=== PATIENT | male | born 1940 | race Caucasian/White ===

== ENCOUNTER 2022-10-14 05:11 | Inpatient (IN) | payer MEDICARE, SELFPAY ==
[2022-10-14] VITALS (20 sets, daily range): BP systolic 115–150; BP diastolic 61–91; PULSE 68–108; RESP 16–28; TEMP 36.8–37; O2SAT 89–100; BMI 22.1
--- NOTE | 2022-10-14 05:31 | ECG_ITS ---
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 Measurements Intervals [place] Rate: 73 P: 68 NV: 156 QRS: -80 QRSD: 146 T: 50 QT: 422 QTc: 467 Interpretive Statements SINUS RHYTHM WITH OCCASIONAL SUPRAVENTRICULAR PREMATURE COMPLEXES RIGHT BUNDLE BRANCH BLOCK [120+ ms QRS DURATION, UPRIGHT V1, 40+ ms S IN I/aVL/V4/V5/V6] LEFT ANTERIOR FASCICULAR BLOCK [QRS AXIS <= -45, QR IN I, RS IN II] POSSIBLE SEPTAL MYOCARDIAL INFARCTION , OF INDETERMINATE AGE [30 ms Q WAVE IN V1/V2] No previous ECG available for comparison Electronically Signed On 10-17-2022 18:27:23 [employer] by Mekhi Sandoval M.D. [id number]
--- NOTE | 2022-10-14 05:31 | XRR_ITS ---
PROCEDURE INFORMATION: Exam: XR Chest Exam date and time: 10/14/2022 6:37 AM Age: 82 years old Clinical indication: Shortness of breath; Chest pressure; Patient HX: C/O chest pain with SOB TECHNIQUE: Imaging protocol: Radiologic exam of the chest. Views: 1 view. COMPARISON: No relevant prior studies available. FINDINGS: Lungs: Normal lung volumes. No interstitial or airspace opacities. Pleural spaces: No pleural effusion. No pneumothorax. Heart/Mediastinum: Normal heart size. There is a mildly tortuous thoracic aorta. Midline trachea. Bones/joints: No acute abnormalities. Soft tissues: Multiple external densities are seen overlying the chest, limiting assessment. XR/XR chest 1V portable [id number] IMPRESSION: No chest radiographic evidence of acute cardiopulmonary disease.
--- NOTE | 2022-10-14 05:49 | ED_ITS ---
HPI - Chest Pain General: Chief Complaint: Chest Pain Stated Complaint: CHEST PAIN Time Seen by Provider: 10/14/22 05:30 Source: patient Mode of arrival: EMS History of Present Illness: 82-year-old male presents to the emergency room with complaint of chest pain. He has had the chest pain for about the last 4 to 5 days. Pain in the center is a left-sided chest radiating into the left arm nothing seem to have alleviated or exacerbated it. He has had a productive cough during that time he said he is felt hot at times but he has not documented a fever. Patient does not smoke he has no known history of coronary artery disease. MD complaint: chest pain Onset (ago): day(s) (5) Prior episodes: Yes Onset: during rest Pain location: left chest Pain radiation: left arm Severity: mild Relieving factors: nothing Exacerbating factors: nothing Associated symptoms: Deny abdominal pain, diaphoresis, dyspnea, fever(s), leg edema, nausea, palpitations, sense of impending doom, syncope or vomiting Treatment prior to arrival: none Review of Systems Const: Denies: fever(s), chills, fatigue, malaise or diaphoresis ENMT: Denies: throat pain, ear or mastoid pain, nasal discharge or nasal congestion Card: Denies: palpitations or syncope Resp: Denies: dyspnea GI: Denies: abdominal pain, nausea or vomiting : Denies: flank pain, dysuria, urinary frequency or urinary urgency Skin/Breast: Denies: rash or pruritus PFSH ED PFSH: Medical History HTN (hypertension) Surgical History No pertinent past surgical history Family History Denies family history of CAD (coronary artery disease) Social History Smoking and tobacco status: never smoked Alcohol intake: never Physical Exam Const: GENERAL APPEARANCE: cooperative and comfortable ORIENTATION/CONSCIOUSNESS: Yes awake, Yes oriented to person, Yes oriented to place and Yes oriented to time HENMT: COMMON NORMALS: normocephalic, atraumatic, hearing grossly normal bilaterally, external ears normal, EAC's normal, TM's normal bilaterally, Normal nasal mucous membranes and turbinates present, moist oral mucous membranes and oropharynx normal HEAD & SCALP: normocephalic and atraumatic NOSE: Normal nasal mucous membranes and turbinates present EXTERNAL EAR: Yes external ears normal EXTERNAL AUDITORY CANAL: EAC's normal TYMPANIC MEMBRANE: TM's normal bilaterally Eye: COMMON NORMALS: Equal, round and reactive pupils present, EOMs intact bilaterally, conjunctivae normal and no scleral icterus CONJUNCTIVA: Yes conjunctivae normal PUPIL: Yes Equal, round and reactive pupils present Neck/C-Spine: COMMON NORMALS: full ROM, no lymphadenopathy, supple and no JVD Lymph: LYMPHATIC: no lymphadenopathy noted and no lymphedema noted Resp: COMMON NORMALS: normal respiratory effort, No retractions, No use of accessory muscles and clear to auscultation bilaterally AUSCULTATION: clear to auscultation bilaterally Cardio: COMMON NORMALS: no JVD, regular rate, regular rhythm and No murmurs present (Cardio) RATE: regular rate RHYTHM: regular rhythm GI: COMMON NORMALS: Soft to palpation and No hepatosplenomegaly present AUSCULTATION: Yes normoactive bowel sounds PALPATION: Yes Soft to palpation, No Tenderness to palpation present (GI), No Guarding due to palpation present (GI) and Yes No hepatosplenomegaly present Extremity: COMMON NORMALS: normal to inspection, capillary refill normal, no clubbing, cyanosis or edema, no calf tenderness and no pedal edema Neuro: SENSORIUM/ORIENTATION: Yes oriented to person, Yes oriented to place and Yes oriented to time Skin: COMMON NORMALS: no rashes or lesions noted GENERAL SKIN EXAM: no rashes or lesions noted Course Vital Signs: Vital signs: Vital Signs Temperature 98.6 F 10/14/22 05:20 Pulse Rate 80 10/14/22 15:37 Respiratory Rate 18 10/14/22 15:37 Blood Pressure 133/87 10/14/22 09:04 Pulse Oximetry 93 10/14/22 15:37 Oxygen Delivery Me thod 10/14/22 15:37 Oxygen Flow Rate 2 10/14/22 09:04 MDM - Chest Pain Medical Decision Making EKG and labs reviewed. EKG shows a right bundle branch block and left anterior fascicular block with no acute ST changes noted he did have a positive delta troponin we will place him on observation. He was started on heparin given half inch of Nitropaste topically also loaded with Plavix discussed , orders written Medical Records I reviewed the patient's medical records. Lab Data I reviewed the patient's lab results. 10/14/22 04:43 10/14/22 04:43 Radiology Impressions Chest X-Ray 10/14/22 05:31 IMPRESSION: No chest radiographic evidence of acute cardiopulmonary disease. Laboratory Results WBC 8.2 10^3/uL (4.0-10.0) 10/14/22 04:43 RBC 4.90 10^6/uL (4.1-5.3) 10/14/22 04:43 Hgb 15.3 g/dL (11.7-16.6) 10/14/22 04:43 Hct 45.9 % (42.0-52.0) 10/14/22 04:43 MCV 93.7 fl (80-94) 10/14/22 04:43 MCH 31.2 pg (28.0-34.0) 10/14/22 04:43 MCHC 33.3 g/dL (30.0-36.0) 10/14/22 04:43 RDW 11.9 % (12.1-15.1) L 10/14/22 04:43 Plt Count 151 10^3/cmm (130-400) 10/14/22 04:43 MPV 10.7 fL (7.4-10.4) H 10/14/22 04:43 Neut % (Auto) 69.0 % 10/14/22 04:43 Lymph % (Auto) 20.8 % 10/14/22 04:43 [place] % (Auto) 8.5 % 10/14/22 04:43 Eos % (Auto) 0.6 % 10/14/22 04:43 Baso % (Auto) 0.6 % 10/14/22 04:43 Neut # (Auto) 5.69 10^3/uL (1.8-7.7) 10/14/22 04:43 Lymph # (Auto) 1.7 10^3/uL (0.8-4.8) 10/14/22 04:43 [place] # (Auto) 0.7 10^3/uL (0.2-0.9) 10/14/22 04:43 Eos # (Auto) 0.1 10^3/uL (0.0-0.8) 10/14/22 04:43 Baso # (Auto) 0.1 10^3/uL (0.0-0.1) 10/14/22 04:43 Nucleated RBC % (auto) 0 % 10/14/22 04:43 Nucleated RBCs # 0.0 /100WBC 10/14/22 04:43 Sodium 137 mmol/L (136-145) 10/14/22 04:43 Potassium 4.0 mmol/L (3.5-5.1) 10/14/22 04:43 Chloride 99 mmol/L (98-107) 10/14/22 04:43 Carbon Dioxide 24 mmol/L (22-29) 10/14/22 04:43 Anion Gap 18.0 (5-19) 10/14/22 04:43 BUN 16 mg/dL (8-23) 10/14/22 04:43 Creatinine 0.7 mg/dL (0.7-1.2) 10/14/22 04:43 GFR Calculation Not Reportable 10/14/22 04:43 Glucose 238 mg/dL (65-115) H 10/14/22 04:43 Calculated Osmolality 293 mOsm/kg (285-295) 10/14/22 04:43 Calcium 9.8 mg/dL (8.5-10.5) 10/14/22 04:43 Troponin T Baseline 16 ng/L (0-15) H 10/14/22 04:43 Troponin T 120 Minute 29.42 ng/L (0-15) H 10/14/22 07:35 Delta Troponin T 13.42 ABS# (0-10) H* 10/14/22 07:35 Discharge Plan Discharge Patient Disposition: Admitted As Inpatient Admit Provider: Meliton Miranda Clinical Impression: Non-ST elevation PR (NSTEMI) Condition: Stable Coding Level of Care Code ED Box Feeder for Astong Fwd Exam Comprehensive
[2022-10-14] MEDS: ipratropium-albuterol 3 mL Neb INHALATION (06:01)
[2022-10-14 06:04] LABS: Troponin(5th) Baseline 16 ng/L (0-15)
[2022-10-14 06:54] LABS: Basophils # 0.1 10^3/uL (0.0-0.1); Basophils % 0.6 %; Eosinophils # 0.1 10^3/uL (0.0-0.8); Eosinophils % 0.6 %; Hematocrit 45.9 % (42.0-52.0); Hemoglobin 15.3 g/dL (11.7-16.6); Lymphocytes # 1.7 10^3/uL (0.8-4.8); Lymphocytes % 20.8 %; Mean Corpuscular HGB Conc 33.3 g/dL (30.0-36.0); Mean Corpuscular Hemoglobin 31.2 pg (28.0-34.0); Mean Corpuscular Volume 93.7 fl (80-94); Mean Platelet Volume 10.7 fL (7.4-10.4); Monocytes # 0.7 10^3/uL (0.2-0.9); Monocytes % 8.5 %; Neutrophils # 5.69 10^3/uL (1.8-7.7); Nucleated Red Blood Cells % 0 %; Platelet Count 151 10^3/cmm (130-400); Red Cell Distribution Width 11.9 % (12.1-15.1); White Blood Count 8.2 10^3/uL (4.0-10.0)
[2022-10-14 06:57] LABS: Blood Urea Nitrogen 16 mg/dL (8-23); Calcium 9.8 mg/dL (8.5-10.5); Carbon Dioxide 24 mmol/L (22-29); Chloride 99 mmol/L (98-107); Glucose 238 mg/dL (65-115); Osmolality Calculated 293 mOsm/kg (285-295); Sodium 137 mmol/L (136-145)
--- NOTE | 2022-10-14 07:31 | ECG_ITS ---
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 Measurements Intervals [place] Rate: 73 P: 60 DE: 153 QRS: -78 QRSD: 145 T: 33 QT: 421 QTc: 464 Interpretive Statements SINUS RHYTHM WITH OCCASIONAL SUPRAVENTRICULAR PREMATURE COMPLEXES RIGHT BUNDLE BRANCH BLOCK [120+ ms QRS DURATION, UPRIGHT V1, 40+ ms S IN I/aVL/V4/V5/V6] LEFT ANTERIOR FASCICULAR BLOCK [QRS AXIS <= -45, QR IN I, RS IN II] POSSIBLE SEPTAL MYOCARDIAL INFARCTION , PROBABLY OLD [30 ms Q WAVE IN V1/V2] No previous ECG available for comparison Electronically Signed On 10-17-2022 18:35:44 STONEWORKING BELT SANDER by Mekhi Sandoval M.D. [id number]
--- NOTE | 2022-10-14 07:33 | PC.PHAR ---
pt states he takes care of his own medications-pt states still taking diltiazem 30mg daily and had build up-ext med history shows last filled 01/15/22 90d/s -pt states on mon and and was doubling up on on this medication-notes are made in the pharmacy comments
[2022-10-14 08:06] LABS: Troponin 5 2HR 29.42 ng/L (0-15)
[2022-10-14 08:09] LABS: Troponin 5 2HR Delta 13.42 ABS# (0-10)
[2022-10-14] MEDS: clopidogrel 300 mg Tablet 600 MG PO (08:37)
[2022-10-14] MEDS: nitroglycerin 1 gm/inch oint Pkt 0.5 INCH TOPICAL (08:38)
--- NOTE | 2022-10-14 11:30 | ECG_ITS ---
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 Measurements Intervals [place] Rate: 74 P: 0 MA: 0 QRS: -74 QRSD: 140 T: 51 QT: 425 QTc: 474 Interpretive Statements ATRIAL FIBRILLATION WITH ABERRANT CONDUCTION OR VENTRICULAR PREMATURE COMPLEXES RIGHT BUNDLE BRANCH BLOCK [120+ ms QRS DURATION, UPRIGHT V1, 40+ ms S IN I/aVL/V4/V5/V6] LEFT ANTERIOR FASCICULAR BLOCK [QRS AXIS <= -45, QR IN I, RS IN II] Compared to ECG 10/14/2022 07:47:26 Ventricular premature complex(es) now present Aberrant conduction of supraventricular beat(s) now present Sinus rhythm no longer present Myocardial infarct finding no longer present Electronically Signed On 10-17-2022 18:35:13 FIELD SERVICES MANAGER by Mekhi Sandoval M.D. [id number]
[2022-10-14] MEDS: heparin 5,000 unit/mL INJ 1 mL IV (11:33)
[2022-10-14] MEDS: heparin drip 25,000 UNIT/500 ML PREMIX 19 UNIT IV (11:40)
--- NOTE | 2022-10-14 12:15 | P.HP_ITS ---
Providers/Chief Complaint Admitting Physician: Meliton Miranda MD Primary Care Provider: Olaf Berkowitz Chief Complaint: CHEST PAIN History of Present Illness Alberto Herrera is a 82 year old male without significant past medical history other than hypertension came in with chief complaint of chest pain. Patient is stating that her symptoms were Monday with right-sided chest pain which has been radiating towards his left side he has also noted some pain in his left arm associated with some nausea and he experienced 1 episode of vomiting this morning that prompted his visit to the ER. In the ER he was diagnosed with NSTEMI with delta troponin 13 however no active chest pain. EKG without ischemic or infarctive changes. I requested D-dimer he has been started on therapeutic Lovenox. Patient wanted to leave to take care of his animals decided to stay 1 more day to get the echo done. Review of Systems Const: Denies: fever(s) Eyes: Denies: change in vision ENMT: Denies: throat pain Card: Reports: chest pain Resp: Denies: dyspnea GI: Denies: abdominal pain : Denies: flank pain Musc: Denies: neck pain Skin/Breast: Denies: rash Neuro: Denies: headache(s) Psych: Denies: anxiety Endo: Denies: polyuria Omar/Lymph: Denies: easy bruising All/Imm: Denies: urticaria Medications/Allergies Home Medications Medication Instructions Recorded Confirmed Last Taken Type aspirin 81 mg tablet,delayed 162 mg PO EVERY OTHER DAY 10/14/22 10/14/22 Unknown History release captopril 25 mg tablet 25 mg PO QA 10/14/22 10/14/22 10/14/22 01:00 History diltiazem HCl 30 mg tablet 30 mg PO QAM 10/14/22 10/14/22 10/14/22 01:00 History multivitamin 1 tab PO DAILY 10/14/22 10/14/22 Unknown History Allergies Allergy/AdvReac Type Severity Reaction Status Date / Time atenolol Allergy ALGY-Rash Verified 10/14/22 05:58 PFSH Acute PFSH: Medical History (Updated 10/14/22 @ 12:16 by Meliton Miranda MD) HTN (hypertension) Surgical History (Updated 10/14/22 @ 12:24 by Meliton Miranda MD) No pertinent past surgical history Family History (Updated 10/14/22 @ 12:25 by Meliton Miranda MD) Denies family history of CAD (coronary artery disease) Social History Smoking and tobacco status: never smoked Alcohol intake: never Vitals/I&O/Wt Last Vital Signs Temp 98.6 F 10/14/22 05:20 Pulse 70 10/14/22 09:04 Resp 16 10/14/22 09:04 BP 133/87 10/14/22 09:04 Pulse Ox 95 10/14/22 09:04 O2 Del Method 10/14/22 09:04 O2 Flow Rate 2 10/14/22 09:04 Weight last 48 hrs Weight 68.039 kg Physical Exam Narrative: S1, S2 A. fib without RVR Variable S1-S2 Abdomen soft No signs of edema Pleasant and cooperative Currently doing well on 2 L nasal cannula Nonfocal neuro exam Pleasant and cooperative No sign of cellulitis Data 10/14/22 04:43 10/14/22 04:43 A&P Assessment and plan (1) HTN (hypertension): (2) Atypical chest pain: (3) Non-ST elevation MT (NSTEMI): Plan Atypical chest pain NSTEMI Start ACS protocol Obtain echo to see wall motion abnormality New onset A. fib Check D-dimer We will start him on AV eliezer blocking agent and therapeutic Lovenox Full code Cardiac diet Check A1c Attestations Medical Necessity Statement*: more than 2 midnights anticipated Time Spent in Patient Care: 30 Coding Level of Care Code Acute Frame Welder Cargo Utility Trailers for Chg Fwd Diagnoses HTN (hypertension) I10 Atypical chest pain R07.89 Non-ST elevation MT (NSTEMI) I21.4
--- NOTE | 2022-10-14 12:30 | USCV_ITS ---
Alberto Herrera Age: 82 Gender: M : 1940 Exam Date: 10/14/2022 15:08 Ordering Phys: Meliton Miranda MD Technologist: DAVIDA [place] [facility] [place]: NSTEMI BP: 122 / 73 HR: 68 Rhythm: Sinus Technical Quality: Adequate MEASUREMENTS (Male / Female) Normal Values 2D ECHO LVOT Diameter 2.0 cm LV Ejection Fraction MOD 2C 51.8 % LV Ejection Fraction 2C AL 51.0 % LA Diameter 2.9 cm LA Width 2.8 cm LA Height 3.5 cm RA Width 2.9 cm RA Height 4.0 cm Aorta at Sinotubular Diameter 2.5 cm IVC Diameter 1.5 cm M-MODE Aortic Annulus Diameter 2.9 cm LA Ao Ratio MM 1.0 MV E Point Septal Separation 0.8 cm DOPPLER AV Peak Velocity 119.0 cm/s LVOT Peak Velocity 120.0 cm/s AV Area Cont Eq vti 2.8 cm squared AV Area Cont Eq pk 3.2 cm squared MV Peak Velocity 105.0 cm/s MV Area PHT 3.9 cm squared Mitral E to A Ratio 0.5 MV E' Velocity 25.5 cm/s Mitral E to MV E' Ratio 7.1 Mitral E to LV E' Lateral Ratio 6.7 Mitral E to LV E' Septal Ratio 7.7 TR Peak Velocity 145.3 cm/s TR Peak Gradient 8.4 mmHg TR Mean Velocity 104.3 cm/s TR Mean Gradient 4.8 mmHg TR Velocity Time Integral 40.0 cm TV Peak E Velocity 29.0 cm/s Right Atrial Pressure 3.0 mmHg Pulmonary Artery Systolic Pressu 11.4 mmHg PV Peak Velocity 78.0 cm/s RV Acceleration Time 0.1 s RV Ejection Time 0.3 s RV AcT/ET 0.3 FINDINGS Left Ventricle Left ventricle is normal in size. LV systolic function is borderline low with EF of 45 to 50%. Mild to moderate hypokinesis of apical wall. Grade 1 diastolic dysfunction Right Ventricle Normal in size and function Right Atrium Normal in size Left Atrium Normal in size Mitral Valve Structurally normal mitral regurgitation.Mild mitral regurgitation. Aortic Valve Grossly normal. Mild to moderate aortic regurgitation Tricuspid Valve Trace tricuspid regurgitation. Insufficient TR jet to calculate RVSP Pulmonic Valve Not well visualized. Pericardium Normal Aorta Normal in size and function IVC CONCLUSIONS LV systolic function is borderline low with EF of 45-50%. Mild to moderate hypokinesis of apical wall Grade 1 diastolic dysfunction Mild mitral regurgitation Mild to moderate aortic regurgitation Trace tricuspid regurgitation No comparison studies are available Mekhi Sandoval MD (Electronically Signed) Final Date: 15 October 2022 11:17 S
[2022-10-14 13:12] LABS: Estmated Average Glucose 180; Hemoglobin A1C 7.9 % (4.0-6.0)
[2022-10-14] MEDS: enoxaparin 80 mg/0.8 mL Syringe 70 MG SUBCUT (13:14)
[2022-10-14] MEDS: metoprolol tartrate 25 mg Tablet PO ×2 (13:14→21:34)
[2022-10-14 13:18] LABS: D Dimer 1.05 ug/mIFEU (0-0.59)
[2022-10-14 13:41] LABS: Vitamin B12 576 pg/mL (232-1245)
[2022-10-14] MEDS: insulin lispro 100 unit/1 mL SUBCUT (17:32)
[2022-10-14 20:47] LABS: Glucose Point of Care 147 mg/dL (70-110)
[2022-10-14] MEDS: atorvastatin 40 mg Tablet PO (21:34)
[2022-10-15] VITALS (9 sets, daily range): BP systolic 95–164; BP diastolic 60–100; PULSE 65–90; RESP 14–20; TEMP 36.8–37.2; O2SAT 89–93
[2022-10-15 00:02] LABS: Partial Thromboplastin Time 88.7 SECONDS (23.9-36.7)
--- NOTE | 2022-10-15 02:05 | PC.NURSE ---
Heparin gtt ordered to be discontinued 12:18 Heparin drip discontinued 12 hours late. Patient has Lovenox ordered subcut at 0100. Physician notified of delay in heparin being discontinued and order for lovenox. Lovenox held and order for ptt redraw in [address] Toscano.
[2022-10-15 04:23] LABS: Basophils % 0.4 %; Eosinophils % 0.4 %; Hematocrit 42.2 % (42.0-52.0); Hemoglobin 14.5 g/dL (11.7-16.6); Lymphocytes # 1.9 10^3/uL (0.8-4.8); Lymphocytes % 26.1 %; Mean Corpuscular HGB Conc 34.4 g/dL (30.0-36.0); Mean Corpuscular Hemoglobin 31.7 pg (28.0-34.0); Mean Corpuscular Volume 92.3 fl (80-94); Monocytes # 0.8 10^3/uL (0.2-0.9); Monocytes % 11.5 %; Neutrophils # 4.39 10^3/uL (1.8-7.7); Neutrophils % 61.5 %; Nucleated Red Blood Cells % 0 %; Platelet Count 135 10^3/cmm (130-400); Red Blood Count 4.57 10^6/uL (4.1-5.3); Red Cell Distribution Width 11.9 % (12.1-15.1); White Blood Count 7.1 10^3/uL (4.0-10.0)
[2022-10-15 04:35] LABS: Partial Thromboplastin Time 34.9 SECONDS (23.9-36.7)
[2022-10-15 04:41] LABS: Blood Urea Nitrogen 17 mg/dL (8-23); Calcium 9.3 mg/dL (8.5-10.5); Carbon Dioxide 27 mmol/L (22-29); Chloride 100 mmol/L (98-107); Glucose 169 mg/dL (65-115); Osmolality Calculated 289 mOsm/kg (285-295); Sodium 137 mmol/L (136-145)
[2022-10-15 07:15] LABS: Glucose Point of Care 186 mg/dL (70-110)
--- NOTE | 2022-10-15 07:21 | CTR_ITS ---
PROCEDURE INFORMATION: Exam: CTA Chest With Contrast Exam date and time: 10/15/2022 8:12 AM Age: 82 years old Clinical indication: Pain; Angina pectoris; Additional info: Chest pain TECHNIQUE: Imaging protocol: Computed tomographic angiography of the chest with contrast. 3D rendering (Not supervised by radiologist): MIP and/or 3D reconstructed images were created by the technologist. Radiation optimization: All CT scans at this facility use at least one of these dose optimization techniques: automated exposure control; mA and/or kV adjustment per patient size (includes targeted exams where dose is matched to clinical indication); or iterative reconstruction. Contrast material: OMNI 350; Contrast volume: 70 ml; Contrast route: INTRAVENOUS (IV); COMPARISON: CR (CHEST, ) 10/14/2022 6:37 AM RADIATION DOSE METRICS: Total DLP (mGy-cm): 328.91 FINDINGS: Pulmonary arteries: Normal. No pulmonary emboli. Aorta: Mild calcification of the aorta. No thoracic aortic aneurysm. Lungs: There is a benign calcified granuloma in the left upper lobe. There are 2 noncalcified nodules in the right middle lobe measuring about 5 mm in diameter. No pneumonia. Pleural spaces: Unremarkable. No pneumothorax. No pleural effusion. Heart: The heart is not enlarged. There is prominent coronary artery calcification. Lymph nodes: Benign calcified lymph nodes are present in the mediastinum and left pulmonary hilum. Spleen: Small benign calcified granulomas are present in the spleen. Bones/joints: Degenerative changes are present in the spine. No acute bony abnormality. Soft tissues: Unremarkable. CT/CT angio chest PE protcl [id number] IMPRESSION: 1. No evidence of pulmonary embolus. 2. There are 2 noncalcified small nodules in the right middle lobe.For patients at low risk (minimal or absent history of smoking and of other known risk factors), no routine follow-up is indicated. For patients at high risk (history of smoking or of other known risk factors), consider optional CT Chest at 12 months. (Reference: Aylin) 3. Prominent coronary artery calcification. REFERENCES: Aylin Mcclain et al. Guidelines for Management of Incidental Pulmonary Nodules Detected on CT Images: From the Fleischner Society 2017. Radiology. 2017;284(1):228-243.
[2022-10-15] MEDS: iohexol 350 mg/mL 500 mL Btl (per mL) IV (08:23)
[2022-10-15] MEDS: insulin lispro 100 unit/1 mL SUBCUT ×2 (08:50→12:48)
[2022-10-15] MEDS: aspirin 81 mg EC Tablet PO (08:50)
[2022-10-15] MEDS: clopidogrel 75 mg Tablet PO (08:50)
[2022-10-15] MEDS: metoprolol tartrate 25 mg Tablet PO (08:51)
--- NOTE | 2022-10-15 09:52 | P.PN_ITS ---
Subjective Subjective: Believe I did tell him that his troponins are high I will like to wait for echo results I cannot discharge him like that Have requested CTA rule out PE because of high D-dimer He is not hypoxic or tachycardic Patient is endorsing feeling slightly better He is worried about his animals Vitals/I&O/Wt Last Vital Signs Temp 99.0 F 10/15/22 04:00 Pulse 90 10/15/22 08:00 Resp 16 10/15/22 08:00 BP 122/71 10/15/22 06:00 Pulse Ox 92 10/15/22 08:00 O2 Del Method 10/15/22 08:00 O2 Flow Rate 2 10/14/22 09:04 10/14/22 10/15/22 10/15/22 22:59 06:59 14:59 Intake Total 247 / 447 240 / 240 Output Total 200 / 200 200 / 400 Balance -200 / 0 47 / 47 240 / 240 Weight last 48 hrs Weight 68.039 kg Physical Exam Narrative: Awake and alert Euvolemic Abdomen soft Active chest pain Pleasant cooperative Nonfocal neuro exam Doing well on room air Data 10/15/22 03:58 10/15/22 03:58 A&P Assessment and plan (1) Non-ST elevation NC (NSTEMI): (2) HTN (hypertension): Plan NSTEMI Awaiting echo report Troponin trending up No active chest pain Continue therapeutic Lovenox Rule out PE requested CTA chest High D-dimer noted Patient is full code Cardiac diet Blood pressure stable Attestations Medical Necessity Statement*: Continue medical management Time Spent in Patient Care: 30 Coding Level of Care Code Acute History Instructor for [facility] Fwd Diagnoses Non-ST elevation NC (NSTEMI) I21.4 HTN (hypertension) I10
[2022-10-15 11:33] LABS: Glucose Point of Care 168 mg/dL (70-110)
--- NOTE | 2022-10-17 20:29 | PM.DCS ---
Discharge Providers Date of Admission: 10/14/22 11:20 Date of Discharge: October 17, 2022 Attending Provider at Admission: Meliton Miranda MD Attending Provider at Discharge: Meliton Miranda MD Primary Care Provider: Olaf Berkowitz Diagnoses at Discharge Discharge Diagnosis (1) Non-ST elevation [place] (NSTEMI): Status: Acute (2) HTN (hypertension): Status: Acute Reason for Visit Reason for Visit: CHEST PAIN Hospital Course Hospital Course 82-year-old male who was admitted for management evaluation of atypical chest pain he was diagnosed with NSTEMI he was started on ACS protocol, CTA ruled out PE, he remained symptom-free during his hospitalization, he was hypertensive, he only spent roughly 24 hours before he decided to go AGAINST MEDICAL ADVICE, he completely understand that he is taking a big risk he could face complication such as cardiac arrhythmia and cardiac arrest, patient is stating that he has to take care of his animals otherwise they will stop the breath, he does not have any family or friends to take care of his animals. I will try to send aspirin, atorvastatin and lisinopril to the pharmacy Physical Exam Narrative: Patient left AMA Discharge Data Studies Completed and Pending Completed Studies During Hospitalization Category Date Time Status CTA PE [CT angio chest PE protcl [id number]] Routine Cat Scan 10/15/22 07:21 Completed XR chest 1V portable [id number] Stat Exams 10/14/22 05:31 Completed CV. echo complete* [id number] Routine Ultrasound 10/14/22 12:30 Completed Radiology Impressions Chest X-Ray 10/14/22 05:31 IMPRESSION: No chest radiographic evidence of acute cardiopulmonary disease. Chest CTA 10/15/22 07:21 IMPRESSION: 1. No evidence of pulmonary embolus. 2. There are 2 noncalcified small nodules in the right middle lobe.For patients at low risk (minimal or absent history of smoking and of other known risk factors), no routine follow-up is indicated. For patients at high risk (history of smoking or of other known risk factors), consider optional CT Chest at 12 months. (Reference: Aylin) 3. Prominent coronary artery calcification. REFERENCES: Aylin Mcclain, et al. Guidelines for Management of Incidental Pulmonary Nodules Detected on CT Images: From the Fleischner Society 2017. Radiology. 2017;284(1):228-243. Laboratory Results WBC 7.1 10^3/uL (4.0-10.0) 10/15/22 03:58 RBC 4.57 10^6/uL (4.1-5.3) 10/15/22 03:58 Hgb 14.5 g/dL (11.7-16.6) 10/15/22 03:58 Hct 42.2 % (42.0-52.0) 10/15/22 03:58 MCV 92.3 fl (80-94) 10/15/22 03:58 MCH 31.7 pg (28.0-34.0) 10/15/22 03:58 MCHC 34.4 g/dL (30.0-36.0) 10/15/22 03:58 RDW 11.9 % (12.1-15.1) L 10/15/22 03:58 Plt Count 135 10^3/cmm (130-400) 10/15/22 03:58 MPV 10.0 fL (7.4-10.4) 10/15/22 03:58 Neut % (Auto) 61.5 % 10/15/22 03:58 Lymph % (Auto) 26.1 % 10/15/22 03:58 [place] % (Auto) 11.5 % 10/15/22 03:58 Eos % (Auto) 0.4 % 10/15/22 03:58 Baso % (Auto) 0.4 % 10/15/22 03:58 Neut # (Auto) 4.39 10^3/uL (1.8-7.7) 10/15/22 03:58 Lymph # (Auto) 1.9 10^3/uL (0.8-4.8) 10/15/22 03:58 [place] # (Auto) 0.8 10^3/uL (0.2-0.9) 10/15/22 03:58 Eos # (Auto) 0.0 10^3/uL (0.0-0.8) 10/15/22 03:58 Baso # (Auto) 0.0 10^3/uL (0.0-0.1) 10/15/22 03:58 Nucleated RBC % (auto) 0 % 10/15/22 03:58 Nucleated RBCs # 0.0 /100WBC 10/15/22 03:58 APTT 34.9 SECONDS (23.9-36.7) D 10/15/22 03:58 D-Dimer 1.05 ug/mIFEU (0-0.59) H 10/14/22 12:53 Sodium 137 mmol/L (136-145) 10/15/22 03:58 Potassium 4.0 mmol/L (3.5-5.1) 10/15/22 03:58 Chloride 100 mmol/L (98-107) 10/15/22 03:58 Carbon Dioxide 27 mmol/L (22-29) 10/15/22 03:58 Anion Gap 14.0 (5-19) 10/15/22 03:58 BUN 17 mg/dL (8-23) 10/15/22 03:58 Creatinine 0.7 mg/dL (0.7-1.2) 10/15/22 03:58 GFR Calculation Not Reportable 10/15/22 03:58 Glucose 169 mg/dL (65-115) H 10/15/22 03:58 POC Glucose 168 mg/dL (70-110) H 10/15/22 11:28 Estimat Average Glucose 180 10/14/22 12:53 Hemoglobin A1c 7.9 % (4.0-6.0) H 10/14/22 12:53 Calculated Osmolality 289 mOsm/kg (285-295) 10/15/22 03:58 Calcium 9.3 mg/dL (8.5-10.5) 10/15/22 03:58 Magnesium 2.0 mg/dL (1.7-2.3) 10/15/22 03:58 Troponin T Baseline 16 ng/L (0-15) H 10/14/22 04:43 Troponin T 120 Minute 29.42 ng/L (0-15) H 10/14/22 07:35 Delta Troponin T 13.42 ABS# (0-10) H* 10/14/22 07:35 Troponin T Hi Sens 6Hr 91.40 ng/L (0-15) H 10/14/22 11:48 Troponin T Hi Sens 6Hr Delta 75.40 ng/L (0-12) H* 10/14/22 11:48 Vitamin B12 576 pg/mL (232-1245) 10/14/22 12:53 Vitals Last Vital Signs Temp 99.0 F 10/15/22 04:00 Pulse 77 10/15/22 10:00 Resp 17 10/15/22 10:00 BP 164/100 10/15/22 10:00 Pulse Ox 91 10/15/22 10:00 O2 Del Method 10/15/22 12:00 O2 Flow Rate 2 10/14/22 09:04 Discharge Plan Discharge Patient Disposition: Left Against Medical Advice Condition: Stable Prescriptions: New atorvastatin 40 mg tablet 40 mg PO DAILY Qty: 60 1RF Continued multivitamin Tablet 1 tab PO DAILY aspirin 81 mg Tablet,Delayed Release (Dr/Ec) 162 mg PO EVERY OTHER DAY Qty: 60 0RF captopril 25 mg tablet 25 mg PO QAM Qty: 60 0RF Discontinued diltiazem HCl 30 mg tablet 30 mg PO QAM Referrals: Amado Palma MD [Physician] - Discharge Attestations Time Spent in Discharge Care*: less than 30 min Quality Metrics Clinical Quality Measures [ No reported AMI, CVA or VTE this stay] Coding Level of Care Code Acute Chg FW DC note Diagnoses Non-ST elevation [place] (NSTEMI) I21.4 HTN (hypertension) I10
== END 2022-10-15 13:32 | disposition left against medical advice (07) | DRG 282 ==
LOC: ER 08:21 → ICU 11:22
PROVIDERS: Student in an Organized Health Care Education/Training Program; Admitting Provider Internal Medicine; Emergency Provider Family Medicine; PCP Family Medicine; Visit Provider Internal Medicine
DX: I21.4 Non-ST elevation (NSTEMI) myocardial infarction (principal); I10 Essential (primary) hypertension; I48.91 Unspecified atrial fibrillation; R79.1 Abnormal coagulation profile; Z53.29 Procedure and treatment not carried out because of patient's decision for other reasons; Z79.82 Long term (current) use of aspirin
CPT/HCPCS: 36415; 36416; 71045; 71275; 80048; 82607; 82962; 83036; 83735; 84484; 85025; 85378; 85730; 93005; 93306; 94640; 96365; 96366; 96372; 96375; 99285; J1644; J1650; J1815; Q9967